=== PATIENT | female | born 1960 | race Caucasian/White ===

== ENCOUNTER 2018-05-01 21:01 | Inpatient (IN) | payer OTHER ==
[~2018-05-01] VITALS: Ht 167.6 cm; Wt 127.4 kg
[2018-05-01] MEDS ORDERED: RAMI10CA PO (21:27)
[2018-05-01] MEDS ORDERED: ATOR40TA78 PO (21:27)
[2018-05-01] MEDS ORDERED: SPIR25TA3 PO (21:27)
[2018-05-01] MEDS ORDERED: LEVO200T5 PO (21:27)
[2018-05-01] MEDS ORDERED: FURO40TA6 PO (21:27)
[2018-05-01] MEDS ORDERED: ASPIRIN 81 MG TABLET CHEW PO ONE (21:30)
[2018-05-01] MEDS ORDERED: SODIUM CHLORIDE FLUSH 10ML SYR IVF ONE (21:30)
[2018-05-01 21:41] LABS: MEAN CORPUSCULAR HEMOGLOBIN 40.2 pg (27.0-34.8); MEAN CORPUSCULAR HGB CONC 33.1 g/dL (32.4-35.8); MEAN CORPUSCULAR VOLUME 121.7 fL (80-100); MEAN PLATELET VOLUME 7.8 fL (7.4-10.4); PLATELET COUNT 226 x10^3/uL (130-400); RED BLOOD COUNT 2.95 x10^6/uL (3.82-5.3)
[2018-05-01] MEDS ORDERED: ASPIRIN 81 MG TABLET CHEW ONE (21:45)
[2018-05-01 21:52] LABS: INTERNATIONAL NORMALIZED RATIO 1.11 (0.93-1.1); PROTHROMBIN TIME 11.4 Seconds (9.6-11.5)
[2018-05-01 21:54] LABS: ALANINE AMINOTRANSFERASE 15 U/L (12-78); ALBUMIN 3.7 g/dL (3.4-5.0); ANION GAP 6 mmol/L (5-15); CALCIUM 9.2 mg/dL (8.5-10.1); CHLORIDE 103 mmol/L (98-107); CREATININE 1.01 mg/dL (0.55-1.02)
[2018-05-01 21:58] LABS: ALKALINE PHOSPHATASE 84 U/L (45-117); BILIRUBIN,TOTAL 1.2 mg/dL (0.2-1.0); TOTAL PROTEIN 7.3 g/dL (6.4-8.2); TROPONIN I < 0.015 ng/mL (0.000-0.045)
[2018-05-01 22:19] LABS: ANISOCYTOSIS 2+; BASOPHILS # (AUTO) 0.05 x10^3/uL (0-0.1); BASOPHILS % (AUTO) 1 % (0-1); EOSINOPHILS # (AUTO) 0.51 x10^3/uL (0-0.4); EOSINOPHILS % (AUTO) 6 % (1-7); LYMPHOCYTES # (AUTO) 2.51 x10^3/uL (1-3.4); LYMPHOCYTES % (AUTO) 27 % (22-44); MD MORPH REVIEW ONLY; MONOCYTES # (AUTO) 0.53 x10^3/uL (0.2-0.8); MONOCYTES % (AUTO) 6 % (2-9); NEUTROPHILS % (AUTO) 61 % (42-75); POLYCHROMASIA 1+
[2018-05-01 22:20] LABS: <PLATELET ESTIMATE> ADEQUATE; <PLT MORPHOLOGY> NORMAL PLT MORPH
[2018-05-01] MEDS ORDERED: OMNIPAQUE 350 MG/ML, 100ML BOTTLE ONE (23:06)
[2018-05-02] MEDS ORDERED: SODIUM CHLORIDE FLUSH 10ML SYR IVF PRN
[2018-05-02] MEDS ORDERED: DOCUSATE 100 MG CAPSULE PO PRN (00:30)
[2018-05-02] MEDS ORDERED: hydrALAzine 20 MG/ML, 1ML IVPush PRN (00:30)
[2018-05-02] MEDS ORDERED: BISACODYL 10 MG SUPP PR PRN (00:30)
[2018-05-02] MEDS ORDERED: POLYETHYLENE GLYCOL 17 GM PACKET PO PRN (00:30)
[2018-05-02] MEDS ORDERED: ONDANSETRON 2MG/ML, 2ML IVPush PRN (00:30)
[2018-05-02] MEDS ORDERED: ENOXAPARIN 40 MG/0.4 ML SQ SCH (00:30)
[2018-05-02 00:53] VITALS: BP 145/82
[2018-05-02 01:09] LABS: FOLATE LEVEL 2.4 ng/mL (3.1-17.5)
[2018-05-02] MEDS ORDERED: POTA10TA11 PO (01:15)
[2018-05-02] MEDS ORDERED: CHOL400C PO (01:17)
[2018-05-02] MEDS ORDERED: LEVOTHYROXINE 200 MCG TABLET PO ONE (03:00)
[2018-05-02] MEDS ORDERED: ASPI325T17 PO (03:36)
[2018-05-02 03:45] LABS: TROPONIN I < 0.015 ng/mL (0.000-0.045)
[2018-05-02] MEDS ORDERED: LEVOTHYROXINE 200 MCG TABLET PO SCH (06:00)
[2018-05-02 08:31] VITALS: BP 102/65
[2018-05-02] MEDS: SPIRONOLACTONE 25 MG TABLET PO SCH ×2 (08:38→23:08)
[2018-05-02] MEDS: SODIUM CHLORIDE FLUSH 10ML SYR IVF SCH ×2 (08:38→23:00)
[2018-05-02] MEDS: FUROSEMIDE 40 MG TABLET PO SCH ×3 (08:39→23:08)
[2018-05-02 08:41] VITALS: BP 101/61
[2018-05-02] MEDS: RAMIPRIL 10 MG CAPSULE PO SCH (08:41)
[2018-05-02 09:20] LABS: TROPONIN I < 0.015 ng/mL (0.000-0.045)
[2018-05-02 13:25] VITALS: BP 106/67
[2018-05-02 19:29] VITALS: BP 97/63
[2018-05-02] MEDS: ATORVASTATIN 40 MG TABLET PO SCH (23:00)
[2018-05-02 23:06] VITALS: BP 108/61
[2018-05-02] MEDS: ACETAMINOPHEN 325 MG TABLET PO PRN (23:18)
[2018-05-03 00:42] VITALS: BP 110/68
[2018-05-03 04:56] LABS: MEAN CORPUSCULAR HEMOGLOBIN 41.1 pg (27.0-34.8); MEAN CORPUSCULAR HGB CONC 33.5 g/dL (32.4-35.8); MEAN CORPUSCULAR VOLUME 122.5 fL (80-100); PLATELET COUNT 207 x10^3/uL (130-400); RED BLOOD COUNT 2.87 x10^6/uL (3.82-5.3); RED CELL DISTRIBUTION WIDTH 17.8 % (9.6-15.2)
[2018-05-03 04:58] LABS: ANION GAP 4 mmol/L (5-15); CALCIUM 8.8 mg/dL (8.5-10.1); CHLORIDE 103 mmol/L (98-107); CREATININE 0.98 mg/dL (0.55-1.02)
[2018-05-03 05:46] LABS: BASOPHILS # (AUTO) 0.05 x10^3/uL (0-0.1); BASOPHILS % (AUTO) 1 % (0-1); EOSINOPHILS # (AUTO) 0.53 x10^3/uL (0-0.4); EOSINOPHILS % (AUTO) 6 % (1-7); LYMPHOCYTES # (AUTO) 2.75 x10^3/uL (1-3.4); LYMPHOCYTES % (AUTO) 31 % (22-44); MD MORPH REVIEW ONLY; MONOCYTES # (AUTO) 0.66 x10^3/uL (0.2-0.8); MONOCYTES % (AUTO) 8 % (2-9); NEUTROPHILS # (AUTO) 4.84 x10^3/uL (1.8-6.8); NEUTROPHILS % (AUTO) 55 % (42-75)
[2018-05-03 05:47] LABS: <PLATELET ESTIMATE> ADEQUATE; <PLT MORPHOLOGY> NORMAL PLT MORPH; ANISOCYTOSIS 2+; POLYCHROMASIA 1+
[2018-05-03] MEDS ORDERED: LEVOTHYROXINE 200 MCG TABLET PO SCH (06:00)
[2018-05-03] MEDS: ENOXAPARIN 40 MG/0.4 ML SQ SCH (06:20)
[2018-05-03] MEDS ORDERED: POTASSIUM CHLORIDE 20 MEQ TAB.ER.PRT PO ONE ×2 (07:30→12:30)
[2018-05-03 08:27] VITALS: BP 123/84
[2018-05-03] MEDS: FUROSEMIDE 40 MG TABLET PO SCH (09:34)
[2018-05-03] MEDS: CYANOCOBALAMIN 1,000 MCG TABLET PO SCH (09:34)
[2018-05-03] MEDS: SPIRONOLACTONE 25 MG TABLET PO SCH ×2 (09:34→20:01)
[2018-05-03] MEDS: FOLIC ACID 1 MG TABLET PO SCH (09:35)
[2018-05-03] MEDS: SODIUM CHLORIDE FLUSH 10ML SYR IVF SCH ×2 (09:35→20:01)
[2018-05-03] MEDS: RAMIPRIL 10 MG CAPSULE PO SCH (09:35)
[2018-05-03] MEDS ORDERED: FUROSEMIDE 20 MG/2 ML IV ONE (12:30)
[2018-05-03 15:02] VITALS: BP 124/75
[2018-05-03 19:22] VITALS: BP 91/57
[2018-05-03] MEDS: ATORVASTATIN 40 MG TABLET PO SCH (20:00)
[2018-05-03] MEDS: FUROSEMIDE 40 MG/4 ML IV SCH (20:00)
[2018-05-04 00:57] VITALS: BP 110/72
[2018-05-04] MEDS: ACETAMINOPHEN 325 MG TABLET PO PRN (01:20)
[2018-05-04 05:43] LABS: ANION GAP 6 mmol/L (5-15); CHLORIDE 101 mmol/L (98-107)
[2018-05-04 05:44] LABS: CREATININE 1.14 mg/dL (0.55-1.02)
[2018-05-04] MEDS: ENOXAPARIN 40 MG/0.4 ML SQ SCH (06:23)
[2018-05-04] MEDS: LEVOTHYROXINE 125 MCG TABLET PO SCH (06:23)
[2018-05-04 08:15] VITALS: BP 95/62
[2018-05-04] MEDS: CYANOCOBALAMIN 1,000 MCG TABLET PO SCH (08:16)
[2018-05-04] MEDS: SODIUM CHLORIDE FLUSH 10ML SYR IVF SCH ×2 (08:16→20:11)
[2018-05-04] MEDS: FUROSEMIDE 40 MG/4 ML IV SCH ×2 (08:16→17:04)
[2018-05-04] MEDS: SPIRONOLACTONE 25 MG TABLET PO SCH ×2 (08:16→20:11)
[2018-05-04] MEDS: RAMIPRIL 10 MG CAPSULE PO SCH (08:16)
[2018-05-04] MEDS: FOLIC ACID 1 MG TABLET PO SCH (08:16)
[2018-05-04 12:26] VITALS: BP 120/77
[2018-05-04 19:52] VITALS: BP 109/72
[2018-05-04] MEDS: ATORVASTATIN 40 MG TABLET PO SCH (20:11)
[2018-05-05 02:27] VITALS: BP 109/69
[2018-05-05 05:17] LABS: ANION GAP 4 mmol/L (5-15); CALCIUM 9.1 mg/dL (8.5-10.1); CHLORIDE 100 mmol/L (98-107); CREATININE 1.01 mg/dL (0.55-1.02)
[2018-05-05] MEDS: ACETAMINOPHEN 325 MG TABLET PO PRN ×2 (06:04→21:25)
[2018-05-05] MEDS: ENOXAPARIN 40 MG/0.4 ML SQ SCH (06:04)
[2018-05-05] MEDS: LEVOTHYROXINE 125 MCG TABLET PO SCH (06:05)
[2018-05-05 07:00] VITALS: BP 89/59
[2018-05-05] MEDS: FUROSEMIDE 40 MG/4 ML IV SCH ×2 (07:30→17:41)
[2018-05-05] MEDS: SPIRONOLACTONE 25 MG TABLET PO SCH ×2 (08:23→21:25)
[2018-05-05] MEDS: RAMIPRIL 10 MG CAPSULE PO SCH (08:23)
[2018-05-05] MEDS: CYANOCOBALAMIN 1,000 MCG TABLET PO SCH (08:32)
[2018-05-05] MEDS: FOLIC ACID 1 MG TABLET PO SCH (08:32)
[2018-05-05] MEDS: SODIUM CHLORIDE FLUSH 10ML SYR IVF SCH ×2 (08:32→21:25)
[2018-05-05 12:35] VITALS: BP 105/72
[2018-05-05] MEDS: ATORVASTATIN 40 MG TABLET PO SCH (21:25)
[2018-05-05 21:58] VITALS: BP 104/68
[2018-05-06 02:42] VITALS: BP 94/59
[2018-05-06 05:28] LABS: ANION GAP 7 mmol/L (5-15); CALCIUM 9.2 mg/dL (8.5-10.1); CHLORIDE 100 mmol/L (98-107)
[2018-05-06 05:29] LABS: CREATININE 0.97 mg/dL (0.55-1.02)
[2018-05-06] MEDS: LEVOTHYROXINE 125 MCG TABLET PO SCH (05:52)
[2018-05-06] MEDS: ENOXAPARIN 40 MG/0.4 ML SQ SCH (05:52)
[2018-05-06 07:19] VITALS: BP 107/71
[2018-05-06] MEDS: RAMIPRIL 10 MG CAPSULE PO SCH (09:00)
[2018-05-06 09:55] VITALS: BP 107/70
[2018-05-06] MEDS: FUROSEMIDE 40 MG/4 ML IV SCH ×2 (09:56→17:08)
[2018-05-06] MEDS: SODIUM CHLORIDE FLUSH 10ML SYR IVF SCH ×2 (09:56→23:39)
[2018-05-06] MEDS: FOLIC ACID 1 MG TABLET PO SCH (09:57)
[2018-05-06] MEDS: CYANOCOBALAMIN 1,000 MCG TABLET PO SCH (09:57)
[2018-05-06] MEDS: SPIRONOLACTONE 25 MG TABLET PO SCH ×2 (09:57→23:39)
[2018-05-06] MEDS ORDERED: FOLI-17 PO (13:39)
[2018-05-06] MEDS ORDERED: FURO40TA6 PO (13:39)
[2018-05-06] MEDS ORDERED: LEVO125T PO (13:39)
[2018-05-06 14:10] VITALS: BP 104/68
[2018-05-06 21:30] VITALS: BP 114/76
[2018-05-06] MEDS: ATORVASTATIN 40 MG TABLET PO SCH (23:38)
[2018-05-06] MEDS: ACETAMINOPHEN 325 MG TABLET PO PRN (23:38)
[2018-05-07 01:15] VITALS: BP 108/68
[2018-05-07] MEDS: LEVOTHYROXINE 125 MCG TABLET PO SCH (05:06)
[2018-05-07] MEDS: ENOXAPARIN 40 MG/0.4 ML SQ SCH (05:06)
[2018-05-07 06:35] VITALS: BP 108/74
[2018-05-07 06:46] VITALS: BP 111/71
[2018-05-07] MEDS: CYANOCOBALAMIN 1,000 MCG TABLET PO SCH (08:05)
[2018-05-07] MEDS: SPIRONOLACTONE 25 MG TABLET PO SCH (08:05)
[2018-05-07] MEDS: ACETAMINOPHEN 325 MG TABLET PO PRN (08:05)
[2018-05-07] MEDS: RAMIPRIL 10 MG CAPSULE PO SCH (08:05)
[2018-05-07] MEDS: FUROSEMIDE 40 MG/4 ML IV SCH ×2 (08:05→15:09)
[2018-05-07] MEDS: FOLIC ACID 1 MG TABLET PO SCH (08:06)
[2018-05-07] MEDS: SODIUM CHLORIDE FLUSH 10ML SYR IVF SCH (08:06)
[2018-05-07 14:39] VITALS: BP 97/70
== END 2018-05-07 17:07 | DRG 291 ==
LOC: ED 23:43 → EDIP 23:51 → 5SO 05-02 00:39
PROVIDERS: ADMIT Internal Medicine; ATTEND Internal Medicine
DX: I11.0 Hypertensive heart disease with heart failure (principal); J96.21 Acute and chronic respiratory failure with hypoxia; I31.3 Pericardial effusion (noninflammatory); J98.11 Atelectasis; E66.2 Morbid (severe) obesity with alveolar hypoventilation; Z68.42 Body mass index [BMI] 45.0-49.9, adult; I50.33 Acute on chronic diastolic (congestive) heart failure; E03.9 Hypothyroidism, unspecified; E53.8 Deficiency of other specified B group vitamins; E78.5 Hyperlipidemia, unspecified; Z87.01 Personal history of pneumonia (recurrent); Z99.81 Dependence on supplemental oxygen; Z91.14 Patient's other noncompliance with medication regimen; Z79.82 Long term (current) use of aspirin
CPT/HCPCS: 36415; 36600; 71045; 71046; 71275; 78582; 80048; 80053; 82607; 82728; 82746; 82803; 83540; 83550; 83880; 84439; 84443; 84466; 84484; 85025; 85610; 85730; 93005; C8929; J1650; J1940; Q9967; A9540; A9558; C9898

== ENCOUNTER 2018-05-22 18:39 | Inpatient (IN) | payer OTHER ==
[~2018-05-22] VITALS: Ht 165.1 cm; Wt 121.6 kg
[~2018-05-22 18:39] MED LIST: ASPI325T17 PO; ATOR40TA78 PO; CHOL400C PO; FOLI-17 PO; FURO40TA6 PO; LEVO125T PO; LEVO200T5 PO; POTA10TA11 PO; RAMI10CA PO; SPIR25TA3 PO
[2018-05-22 19:31] LABS: MEAN CORPUSCULAR HEMOGLOBIN 37.4 pg (27.0-34.8); MEAN CORPUSCULAR HGB CONC 33.2 g/dL (32.4-35.8); MEAN CORPUSCULAR VOLUME 112.6 fL (80-100); MEAN PLATELET VOLUME 9.7 fL (7.4-10.4); PLATELET COUNT 239 x10^3/uL (130-400); RED BLOOD COUNT 3.37 x10^6/uL (3.82-5.3); RED CELL DISTRIBUTION WIDTH 19.6 % (9.6-15.2)
[2018-05-22 19:45] LABS: ALANINE AMINOTRANSFERASE 20 U/L (12-78); ALBUMIN 4.1 g/dL (3.4-5.0); ANION GAP 6 mmol/L (5-15); CALCIUM 10.1 mg/dL (8.5-10.1); CHLORIDE 104 mmol/L (98-107); CREATININE 3.84 mg/dL (0.55-1.02)
[2018-05-22 19:50] LABS: BASOPHILS # (AUTO) 0.07 x10^3/uL (0-0.1); BASOPHILS % (AUTO) 1 % (0-1); EOSINOPHILS # (AUTO) 0.63 x10^3/uL (0-0.4); EOSINOPHILS % (AUTO) 7 % (1-7); LYMPHOCYTES # (AUTO) 1.73 x10^3/uL (1-3.4); LYMPHOCYTES % (AUTO) 19 % (22-44); MD SCAN; MONOCYTES % (AUTO) 7 % (2-9); NEUTROPHILS # (AUTO) 6.15 x10^3/uL (1.8-6.8); NEUTROPHILS % (AUTO) 67 % (42-75)
[2018-05-22 19:58] LABS: ALKALINE PHOSPHATASE 76 U/L (45-117); BILIRUBIN,TOTAL 0.5 mg/dL (0.2-1.0); TOTAL PROTEIN 7.8 g/dL (6.4-8.2)
[2018-05-22] MEDS ORDERED: DEXTROSE 50%, 50ML SYRINGE IVPush ONE (20:30)
[2018-05-22] MEDS ORDERED: ALBUTEROL 0.5%, 20ML NPPB ONE (20:30)
[2018-05-22] MEDS ORDERED: INSULIN REGULAR 100 UNITS/ML, 3ML VIAL IVPush ONE (20:30)
[2018-05-22] MEDS ORDERED: SODIUM CHLORIDE 0.9% 1,000ML IVBOLUS ONE (20:30)
[2018-05-22] MEDS ORDERED: DEXTROSE 50%, 50ML SYRINGE ONE (20:31)
[2018-05-22] MEDS ORDERED: SODIUM CHLORIDE 0.9% 1,000 ML IV ONE (20:47)
[2018-05-22] MEDS ORDERED: CYCL5TAB PO (21:00)
[2018-05-22] MEDS ORDERED: GABA100C PO (21:00)
[2018-05-22] MEDS ORDERED: IBUP-1222 PO (21:00)
[2018-05-22] MEDS ORDERED: ASPI-496 PO (21:00)
[2018-05-22] MEDS ORDERED: LISI-170 PO (21:00)
[2018-05-22] MEDS ORDERED: LORA10TA3 PO (21:00)
[2018-05-22] MEDS ORDERED: SODIUM POLYSTYRENE SULFONATE ORAL SUSP PO ONE (21:30)
[2018-05-22 21:46] VITALS: BP 103/68
[2018-05-22] MEDS ORDERED: POLYETHYLENE GLYCOL 17 GM PACKET PO PRN (22:00)
[2018-05-22] MEDS ORDERED: ACETAMINOPHEN 325 MG TABLET PO PRN (22:00)
[2018-05-22] MEDS ORDERED: hydrALAzine 20 MG/ML, 1ML IVPush PRN (22:00)
[2018-05-22] MEDS ORDERED: ONDANSETRON 2MG/ML, 2ML IVPush PRN (22:00)
[2018-05-22] MEDS ORDERED: BISACODYL 10 MG SUPP PR PRN (22:00)
[2018-05-22 22:18] LABS: MICROSCOPIC AUTO
[2018-05-22 22:20] LABS: CULTURE INDICATED? YES
[2018-05-22 22:27] LABS: CREATININE,URINE RANDOM 61.3 mg/dL
[2018-05-22] MEDS: SODIUM CHLORIDE 0.9% 1,000 ML IV SCH (22:38)
[2018-05-22] MEDS: HEPARIN 5,000 UNITS/ML, 1ML SQ SCH (22:39)
[2018-05-22 23:38] LABS: FOLATE LEVEL 13.9 ng/mL (3.1-17.5)
[2018-05-23 01:22] VITALS: BP 92/59
[2018-05-23] MEDS: SODIUM CHLORIDE 0.9% 1,000 ML IV SCH ×3 (05:40→23:07)
[2018-05-23] MEDS: HEPARIN 5,000 UNITS/ML, 1ML SQ SCH ×3 (05:40→23:07)
[2018-05-23] MEDS: LEVOTHYROXINE 125 MCG TABLET PO SCH (05:40)
[2018-05-23 05:44] LABS: MEAN CORPUSCULAR HEMOGLOBIN 37.5 pg (27.0-34.8); MEAN CORPUSCULAR HGB CONC 33.2 g/dL (32.4-35.8); MEAN CORPUSCULAR VOLUME 113.1 fL (80-100); MEAN PLATELET VOLUME 9.7 fL (7.4-10.4); PLATELET COUNT 210 x10^3/uL (130-400); RED CELL DISTRIBUTION WIDTH 19.3 % (9.6-15.2)
[2018-05-23 05:51] LABS: ALBUMIN 3.5 g/dL (3.4-5.0); ANION GAP 7 mmol/L (5-15); CALCIUM 9.3 mg/dL (8.5-10.1); CHLORIDE 108 mmol/L (98-107)
[2018-05-23 05:54] LABS: ALANINE AMINOTRANSFERASE 18 U/L (12-78); ALKALINE PHOSPHATASE 66 U/L (45-117); BILIRUBIN,TOTAL 0.3 mg/dL (0.2-1.0); CREATININE 3.36 mg/dL (0.55-1.02); TOTAL PROTEIN 6.9 g/dL (6.4-8.2)
[2018-05-23 06:20] LABS: BASOPHILS # (AUTO) 0.05 x10^3/uL (0-0.1); BASOPHILS % (AUTO) 1 % (0-1); EOSINOPHILS # (AUTO) 0.51 x10^3/uL (0-0.4); EOSINOPHILS % (AUTO) 6 % (1-7); LYMPHOCYTES # (AUTO) 1.44 x10^3/uL (1-3.4); LYMPHOCYTES % (AUTO) 17 % (22-44); MD SCAN; MONOCYTES # (AUTO) 0.78 x10^3/uL (0.2-0.8); MONOCYTES % (AUTO) 9 % (2-9); NEUTROPHILS # (AUTO) 5.73 x10^3/uL (1.8-6.8); NEUTROPHILS % (AUTO) 67 % (42-75)
[2018-05-23 07:09] VITALS: BP 93/58
[2018-05-23] MEDS: SENNA/DOCUSATE TABLET PO SCH (08:36)
[2018-05-23] MEDS: CEFTRIAXONE PMX 2GM/50ML 50 ML IV SCH (08:37)
[2018-05-23] MEDS: LORATADINE 10 MG TABLET PO SCH ×2 (08:37→08:39)
[2018-05-23] MEDS: FOLIC ACID 1 MG TABLET PO SCH (08:38)
[2018-05-23 12:35] VITALS: BP 97/61
[2018-05-23 19:00] VITALS: BP 96/65
[2018-05-24 00:56] VITALS: BP 100/66
[2018-05-24] MEDS: LEVOTHYROXINE 125 MCG TABLET PO SCH (05:25)
[2018-05-24 05:38] LABS: MEAN CORPUSCULAR HEMOGLOBIN 37.3 pg (27.0-34.8); MEAN PLATELET VOLUME 9.7 fL (7.4-10.4); PLATELET COUNT 172 x10^3/uL (130-400); RED BLOOD COUNT 2.95 x10^6/uL (3.82-5.3); RED CELL DISTRIBUTION WIDTH 19.2 % (9.6-15.2)
[2018-05-24 05:45] LABS: ANION GAP 6 mmol/L (5-15); CALCIUM 8.9 mg/dL (8.5-10.1); CHLORIDE 113 mmol/L (98-107)
[2018-05-24 05:46] LABS: CREATININE 1.67 mg/dL (0.55-1.02)
[2018-05-24 05:57] LABS: BASOPHILS # (AUTO) 0.05 x10^3/uL (0-0.1); BASOPHILS % (AUTO) 1 % (0-1); EOSINOPHILS % (AUTO) 6 % (1-7); LYMPHOCYTES # (AUTO) 1.25 x10^3/uL (1-3.4); LYMPHOCYTES % (AUTO) 18 % (22-44); MONOCYTES # (AUTO) 0.78 x10^3/uL (0.2-0.8); MONOCYTES % (AUTO) 12 % (2-9); NEUTROPHILS # (AUTO) 4.31 x10^3/uL (1.8-6.8); NEUTROPHILS % (AUTO) 64 % (42-75)
[2018-05-24 06:00] LABS: MD SCAN
[2018-05-24] MEDS: CEFTRIAXONE PMX 2GM/50ML 50 ML IV SCH (08:37)
[2018-05-24] MEDS: HEPARIN 5,000 UNITS/ML, 1ML SQ SCH (08:37)
[2018-05-24] MEDS: LORATADINE 10 MG TABLET PO SCH (08:38)
[2018-05-24] MEDS: SENNA/DOCUSATE TABLET PO SCH (08:38)
[2018-05-24] MEDS: FOLIC ACID 1 MG TABLET PO SCH (08:38)
[2018-05-24 08:48] VITALS: BP 91/61
[2018-05-24] MEDS ORDERED: IBUPROFEN 200 MG TABLET PO PRN (09:30)
[2018-05-24] MEDS ORDERED: CEFU250T66 PO (11:38)
[2018-05-24 13:54] VITALS: BP 95/61
[2018-05-24] MEDS ORDERED: SODIUM CHLORIDE 0.9% 1,000 ML IV SCH (21:33)
== END 2018-05-24 15:44 | disposition home or self-care (01) | DRG 872 ==
LOC: ED 20:17 → EDIP 20:47 → 4EST 21:39 → DCLOUNGE 05-24 15:28
PROVIDERS: ADMIT Hospitalist; ATTEND Hospitalist
DX: A41.9 Sepsis, unspecified organism (principal); E66.2 Morbid (severe) obesity with alveolar hypoventilation; E87.1 Hypo-osmolality and hyponatremia; J96.10 Chronic respiratory failure, unspecified whether with hypoxia or hypercapnia; N17.9 Acute kidney failure, unspecified; N39.0 Urinary tract infection, site not specified; Z68.41 Body mass index [BMI] 40.0-44.9, adult; D75.89 Other specified diseases of blood and blood-forming organs; E03.9 Hypothyroidism, unspecified; E78.5 Hyperlipidemia, unspecified; E87.5 Hyperkalemia; G47.00 Insomnia, unspecified; I11.0 Hypertensive heart disease with heart failure; I50.9 Heart failure, unspecified; M16.10 Unilateral primary osteoarthritis, unspecified hip; Z79.899 Other long term (current) drug therapy; Z99.81 Dependence on supplemental oxygen
CPT/HCPCS: 36415; 76770; 80048; 80053; 81001; 82436; 82570; 82607; 82746; 84132; 84133; 84300; 85025; 87040; 87077; 87086; 87186; 93005; 96374; 99291; J0696; J1644; J7030

== ENCOUNTER → 2018-10-15 | Outpatient (CLI) | payer OTHER ==
[~2018-10-15] MED LIST changes: +ASPI-496 PO; +CEFU250T66 PO; +CYCL5TAB PO; +GABA100C PO; +IBUP-1222 PO; +LISI-170 PO; +LORA10TA3 PO; -RAMI10CA PO; +RAMI10CA59 PO; -SPIR25TA3 PO; +SPIR25TA5 PO
== END | disposition home or self-care (01) ==
LOC: RAD 08:04
PROVIDERS: ATTEND Nurse Practitioner
DX: J90 Pleural effusion, not elsewhere classified (principal)
CPT/HCPCS: 71250